=== PATIENT | female | born 1955 | race Caucasian/White ===

== ENCOUNTER → 2018-12-22 | Outpatient (CLI) | payer MEDICARE ==
--- NOTE | 2018-12-25 18:03 | CT ---
EXAMINATION TYPE: CT wrist LT wo con DATE OF EXAM: 12/22/2018 COMPARISON: None HISTORY: 63-year-old female with left wrist pain after fall x3 weeks ago. TECHNIQUE: Contiguous axial scanning of the left wrist without IV contrast. Coronal and sagittal fito nstructions performed. 3-D reconstructions generated on a dedicated independent workstation. CT DLP: 141.9 mGycm Automated exposure control for dose reduction was used. FINDINGS: Overlying fiberglass cast. There is a markedly comminuted fracture of the distal radial epiphysis. Multiple fracture lines exten d into the radiocarpal joint space with the greatest degree of comminution and articular surface disr uption along the dorsal aspect. Fragmentation incorporates listers tubercle. There is minimal impaction along the dorsal mid aspect approximately 3 mm. Otherwise, no significant displacement or large osseous gap is identified. Moderate to severe degenerative change at the first CMC joint with subchondral cystic change and bulk y marginal spurring. No additional acute fracture, subluxation, or dislocation seen. IMPRESSION: 1. MARKEDLY COMMINUTED FRACTURE OF THE DISTAL RADIAL EPIPHYSIS WITH MULTIPLE FRACTURE LINES EXTENDING INTO THE RADIOCARPAL JOINT. THE GREATEST DEGREE OF COMMINUTION INVOLVES THE DORSAL ASPECT OF THE DIS KAELYN RADIUS WITH MULTIPLE INTRA-ARTICULAR FRACTURE LINES HERE. 2. MILD 3 MM ARTICULAR SURFACE IMPACTION (SAGITTAL IMAGE 17) ALONG THE DORSAL MID ASPECT. OTHERWISE, NO SIGNIFICANT DISPLACEMENT OR LARGE BONY ARTICULAR SURFACE GAP. 3. COMMINUTION EXTENDS TO INCLUDE LISTERS TUBERCLE. 4. MODERATE TO SEVERE OA AT THE BASAL JOINT OF THE THUMB.
== END | disposition home or self-care (01) ==
LOC: RADCTMAIN 16:24
PROVIDERS: ATTEND Orthopaedic Surgery
DX: S52.572A Other intraarticular fracture of lower end of left radius, initial encounter for closed fracture (principal); M19.042 Primary osteoarthritis, left hand